=== PATIENT | female | born 1980 | race American Indian/Alaskan Native ===

== ENCOUNTER 2017-01-10 22:36 | Emergency (ER) | payer OTHER ==
--- NOTE | 2017-01-11 00:18 | Emergency Department Report ---
Abscess Boil HPI - HPI Chief Complaint: Skin/Abscess/Foreign Body Stated Complaint: RASH/RT ARM Time Seen by Provider: 01/11/17 00:14 Duration: 3 Days Location: Upper Extremity Severity: Mild History: Yes Pain, No Fever, No Purulent Drainage, No Numbness, No Foreign Body , No Previous History, No Insect Bite HPI: 36 year old female presents to ED with abscess present on right lateral wrist x3 days. Home Medications: Previous Rx's Medication Instructions Recorded Last Taken Type Sulfamethoxazole/Trimethoprim 1 each PO BID #14 tablet 01/11/17 Unknown Rx [Bactrim DS TAB] Allergies/Adverse Reactions: Allergies Allergy/AdvReac Type Severity Reaction Status Date / Time No Known Allergies Allergy Verified 01/11/17 01:47 ED Review of Systems ROS: Stated complaint: RASH/RT ARM Other details as noted in HPI Constitutional: denies: chills, fever Eyes: denies: eye pain, eye discharge, vision change ENT: denies: ear pain, throat pain Respiratory: denies: cough, shortness of breath, wheezing Cardiovascular: denies: chest pain, palpitations Endocrine: no symptoms reported Gastrointestinal: denies: abdominal pain, nausea, vomiting, diarrhea Genitourinary: denies: urgency, dysuria, discharge Musculoskeletal: denies: back pain, joint swelling, arthralgia Skin: other (abscess). denies: rash, lesions Neurological: denies: headache, weakness, paresthesias Psychiatric: denies: anxiety, depression Hematological/Lymphatic: denies: easy bleeding, easy bruising ED Past Medical Hx - Past Medical History Previous Medical History?: No - Social History Smoking Status: Unknown if ever smoked - Medications Home Medications: Home Medications Medication Instructions Recorded Confirmed Last Taken Type Sulfamethoxazole/Trimethoprim 1 each PO BID #14 tablet 01/11/17 Unknown Rx [Bactrim DS TAB] ED Abscess Boil Physical Exam - Exam General: Vital signs noted. No distress. Alert and acting appropriately. Size: 2 cm Exam: Yes Tenderness, Yes Normal Neurologic Exam, Yes Normal Circulation, No Fluctuance, No Surrounding Cellulites/Erythema, No Lymphangitis, No Crepitation , No Heart Murmur I & D Note - I & D Note I & D Note: Site prepped with betadine and irrigated with 50cc's normal saline. 5mL 1% lidocaine injected at site of abscess. moderate amount of purulent drainage obtained from abscess. patient tolerated procedure well. incision site not large enough for packing. bacitracin and gauze applied to site of I&D. ED Course Vital Signs 01/10/17 23:16 Temperature 98.7 F Pulse Rate 83 Respiratory 20 Rate Blood Pressure 128/90 O2 Sat by Pulse 99 Oximetry Critical care attestation.: If time is entered above; I have spent that time in minutes in the direct care of this critically ill patient, excluding procedure time. ED Medical Decision Making - Lab Data Lab Results 01/11/17 Range/Units Unknown Urine HCG, Qual Negative (Negative) - Medical Decision Making patient is stable, neurologically intact and in no acute distress. patient will be discharged with RX for antibiotics for abscess I&D. ED Disposition Clinical Impression: Abscess Disposition: DISCHARGED TO HOME OR SELFCARE Is pt being admited?: No Does the pt Need Aspirin: No Condition: Stable Instructions: Abscess (ED) Additional Instructions: Please return to ED within 2-3 days for recheck of I&D site. Prescriptions: Sulfamethoxazole/Trimethoprim [Bactrim DS TAB] 1 each PO BID #14 tablet Referrals: PRIMARY CARE, [Primary Care Provider] - 3-5 Days Forms: Work/School Release Form(ED)
[2017-01-11] MEDS: NORCO 5/325 PO ONE (00:30)
[2017-01-11] MEDS: XYLOCAINE 1%/ EPI 1:100,000 INFILTRATI ONE (00:45)
[2017-01-11] MEDS: BACITRACIN (ED) OINT PACKET TP ONE (02:07)
[2017-01-11 02:39] VITALS: BP 120/88
== END 2017-01-11 02:37 | disposition home or self-care (01) ==
LOC: ED 22:36
DX: L02.413 Cutaneous abscess of right upper limb (principal)
CPT/HCPCS: 81025